=== PATIENT | male | born 1995 | race Caucasian/White ===

== ENCOUNTER 2016-08-22 06:30 | Day surgery (SDC) | payer OTHER ==
[~2016-08-22] VITALS: Ht 172.7 cm; Wt 103.5 kg
[2016-08-22] VITALS (12 sets, daily range): BP systolic 107–165; BP diastolic 55–79; PULSE 76–108; RESP 15–20; Ht 172.7 cm; Wt 103.5 kg
[~2016-08-22 06:30] MED LIST: HYDR-906 PO; IBUP-1542 PO
--- NOTE | 2016-08-22 07:36 | HPN ---
Date/Time of Note Date/Time of Note DATE: 08/22/16 TIME: 07:35 Interval H&P Admission Note Pt. seen H&P reviewed: No system changes MISTY ERWIN MD August 22, 2016 07:36
[2016-08-22] MEDS ORDERED: FENTAnyl 50 MCG/ML VIAL ONE (07:37)
[2016-08-22] MEDS ORDERED: SUCCINYLCHOLINE CHLORIDE 100 MG/5 ML SYG IV ONE (07:37)
[2016-08-22] MEDS ORDERED: ONDANSETRON 4 MG INJ ONE (07:37)
[2016-08-22] MEDS ORDERED: PROPOFOL 20 ML ONE (07:37)
[2016-08-22] MEDS ORDERED: CEFAZOLIN 1 GM INJ ONE (07:37)
[2016-08-22] MEDS ORDERED: ROCURONIUM 50 MG INJ ONE (07:37)
[2016-08-22] MEDS ORDERED: BUPIVACAINE 0.25% (MPF) 10 ML 10 ML VIAL ONE (08:28)
[2016-08-22] MEDS ORDERED: HYDROmorphONE (0.2 MG/ML) 10ML SYG IV PRN ×3 (09:00)
[2016-08-22] MEDS ORDERED: FENTAnyl 50 MCG/ML VIAL IV PRN ×2 (09:00)
[2016-08-22] MEDS ORDERED: ONDANSETRON 4 MG INJ IV PRN (09:00)
[2016-08-22] MEDS ORDERED: MEPERIDINE 25 MG INJ IV PRN (09:00)
[2016-08-22] MEDS ORDERED: NEOMYC/POLYMYX/BACIT 30 GM OINT ONE (10:23)
[2016-08-22] MEDS ORDERED: OXYCODONE/ACETAMINOPHEN (5/325) TAB PO PRN (11:00)
[2016-08-22] MEDS ORDERED: DEXTROSE 5% 1,000 ML IV SCH (11:00)
[2016-08-22] MEDS ORDERED: hydrOXYzine HCL 100 MG INJ IM PRN (11:00)
[2016-08-22] MEDS ORDERED: MEPERIDINE 50 MG INJ IM PRN (11:00)
--- NOTE | 2016-08-22 14:16 | RADRPT ---
PROCEDURE: Intraoperative imaging of the left hand with fluoroscopy. CLINICAL INDICATION: Left hand pain. Intraoperative. TECHNIQUE: Four images of the left hand were obtained in the operating room with an image intensif ier. No radiologist was in attendance. 4 minutes and 38 seconds of fluoroscopy time was used. COMPARISON: Left hand radiographs dated 02/14/2016. FINDINGS: Images demonstrate open reduction and internal fixation of the fracture of the distal shaft of the l eft fifth metacarpal with a posterior plate and multiple screws. IMPRESSION: 1. Intraoperative imaging of the left hand. RPTAT: QQ .Umang Javier MD, Date Time Electronically viewed and signed by .Umang Javier MD, on 08/22/2016 13:34 .R/
--- NOTE | 2016-08-25 08:16 | OPR ---
DATE OF OPERATION: 08/22/2016 PREOPERATIVE DIAGNOSES: 1. Nonunion left fifth metacarpal fracture. 2. Capsular fibrous right fifth metacarpophalangeal joint. POSTOPERATIVE DIAGNOSES: 1. Nonunion left fifth metacarpal fracture. 2. Capsular fibrous right fifth metacarpophalangeal joint. OPERATION PERFORMED: 1. Capsulotomy metacarpophalangeal joint. 2. Removal of pseudoarthrosis. 3. Open reduction and internal fixation of fifth metacarpal and olecranon bone graft. 4. Application of short arm splint. SURGEON: Nirav Munson MD DESCRIPTION OF PROCEDURE: With the patient supine on the operating table, general anesthesia was be gun. Ancef 2 grams IV was administered. The left upper extremity from below the tourniquet wa s prepared and draped in a sterile fashion. The Esmarch bandage was applied and the tourniquet infl ated to 250 mmHg. A longitudinal incision was made overlying the metacarpal extending across the me tacarpophalangeal joint to the dorsum of the small finger proximal phalanx. The extensor mechanism was divided longitudinally. The metacarpophalangeal joint was identified. The dorsal capsule was i ncised. Both collateral ligaments were divided and the MP joint could flex. The volar pouch was cl eared using a [place] elevator. Attention was directed to the nonunion area. The periosteum and scar tissue was elevated. A curett e was used to remove the pseudoarthrosis. The pseudoarthrosis was curetted. The metacarpal fractur e with a dorsal apex angulation was corrected. An 0.062 K-wire was introduced from the fifth metac arpal head intramedullary to maintain the reduction temporarily. A 2.4 mm plate was chosen with a d istal flare. This was clamped in place. The proximal holes were drilled with a 2.0 drill and then 2.4 mm screws placed. With the fracture reduced after removing the K-wire, the 3 distal holes were drilled and appropriate 2.4 mm screws placed. Attention was directed to the olecranon. A longitudinal incision was made. A drill hole was made i n the olecranon. A curette was used to harvest cancellous bone. Attention was redirected to the hand. The cancellous bone was packed around the fracture site. Sutures of 3-0 Poly[place]k were then used to repair the extensor mechanism and the dorsal tissue. Two K -wires, 0.045, were introduced to maintain the metacarpophalangeal joint in approximately 70 degrees of flexion. The K-wires were bent and cut short. [place] were used to approximate the skin. The olecranon incision was likewise approximated with sav[place]. A voluminous sterile hand dressing and d orsal splint maintaining the wrist in approximately 20 degrees of extension and the metacarpophalang eal joints in approximately 70 degrees of flexion was applied. The patient tolerated the procedure and left in satisfactory condition. Dictated By: NIRAV LEE/MELLISA Conf#: [id number] DID#: [id number]
== END 2016-08-22 12:39 | disposition home or self-care (01) ==
LOC: SDS 06:30
PROVIDERS: ATTEND Orthopaedic Surgery Hand Surgery
DX: S62.307 Unspecified fracture of fifth metacarpal bone, left hand (principal); X58.XXXD Exposure to other specified factors, subsequent encounter
CPT/HCPCS: 26546; 73130; C1713; J0330; J0690; J2405; J3010; J7070; Z7512; Z7610

== ENCOUNTER 2016-10-08 21:52 | Emergency (ER) | payer OTHER ==
[~2016-10-08] VITALS: Wt 104.0 kg
[2016-10-08] MEDS ORDERED: BACI28.34 TOP (22:37)
[2016-10-08] MEDS ORDERED: IBUP-1542 PO (22:37)
[2016-10-08] MEDS ORDERED: CEPH-443 PO (22:37)
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
== END 2016-10-08 22:48 | disposition home or self-care (01) ==
LOC: FTE 21:52
DX: T22.232A Burn of second degree of left upper arm, initial encounter (principal); T22.231A Burn of second degree of right upper arm, initial encounter; X32.XXXA Exposure to sunlight, initial encounter; Y92.9 Unspecified place or not applicable
CPT/HCPCS: 99283